=== PATIENT | female | born 1980 | race Caucasian/White ===

== ENCOUNTER 2017-09-03 13:20 | Emergency (ER) | payer BC, OTHER ==
[2017-09-03] MEDS ORDERED: NORMAL SALINE 1000 ML 1,000 ML IV ONE (13:57)
[2017-09-03] MEDS ORDERED: ONDANSETRON HCL INJ/PF 4 MG/2 ML SDV IV ONE (13:58)
--- NOTE | 2017-09-03 14:00 | ER Document Report ---
ED Medical Screen (RME) - General Chief Complaint: Vomiting Stated Complaint: VOMITING Time Seen by Provider: 09/03/17 13:57 Mode of Arrival: Wheelchair Information source: Patient TRAVEL OUTSIDE OF THE [place] IN LAST 30 DAYS: No - HPI Patient complains to provider of: vomiting Onset: This morning - pt states she has had multiple episodes of emesis since earlier this am; min abd pain, no diarrhea - Related Data Allergies/Adverse Reactions: Penicillins Adverse Reaction (Severe, Verified 09/03/17 13:20) RASH adhesive [Adhesive] Adverse Reaction (Mild, Verified 09/03/17 13:20) RASH Past Medical History - Social History Chew tobacco use (# tins/day): No Frequency of alcohol use: Occasional Drug Abuse: None - Past Medical History Cardiac Medical History: Denies: Hx Coronary Artery Disease, Hx Heart Attack, Hx Hypertension Pulmonary Medical History: Reports: Hx Asthma - A CHILD Denies: Hx Bronchitis, Hx COPD, Hx Pneumonia Neurological Medical History: Denies: Hx Cerebrovascular Accident, Hx Seizures Renal/ Medical History: Denies: Hx Kidney Stones, Hx Ovarian Cysts, Hx Peritoneal Dialysis, Hx Pelvic Inflammatory Disease Malignancy Medical History: Denies: Hx Breast Cancer, Hx Cervical Cancer, Hx Ovarian Cancer GI Medical History: Reports: Hx Gastroesophageal Reflux Disease - AT NIGHT, Hx Hiatal Hernia. Denies: Hx Ulcer Musculoskeltal Medical History: Denies Hx Arthritis Past Surgical History: Reports: Hx Abdominal Surgery - hernia, Hx Breast Surgery - augmentation, Hx Section - x2, Hx Tonsillectomy, Hx Tubal Ligation - Immunizations Hx Diphtheria, Pertussis, Tetanus Vaccination: - UNKNOWN Physical Exam - Vital signs Vitals: Temp Pulse Resp BP Pulse Ox 97.4 F 82 16 129/89 H 99 09/03/17 13:31 09/03/17 13:31 09/03/17 13:31 09/03/17 13:31 09/03/17 13:31 Course - Vital Signs Vital signs: Temp Pulse Resp BP Pulse Ox 97.4 F 82 16 129/89 H 99 09/03/17 13:31 09/03/17 13:31 09/03/17 13:31 09/03/17 13:31 09/03/17 13:31
[2017-09-03 15:02] LABS: ABSOLUTE BASOPHILS # (AUTO) 0.1 10^3/uL (0.0-0.2); ABSOLUTE LYMPHOCYTES (AUTO) 0.8 10^3/uL (0.5-4.7); ABSOLUTE MONOCYTES (AUTO) 0.2 10^3/uL (0.1-1.4); ABSOLUTE NEUT (AUTO) 8.2 10^3/uL (1.7-8.2); BASOPHILS % (AUTO) 0.6 % (0-2); EOSINOPHILS % (AUTO) 0.1 % (0-6); HEMATOCRIT 42.1 % (36.0-47.0); LYMPHOCYTES % (AUTO) 8.6 % (13-45); MEAN CORPUSCULAR HGB CONC 33.2 g/dL (32.0-36.0); MEAN CORPUSCULAR VOLUME 91 fl (80-97); MONOCYTES % (AUTO) 2.5 % (3-13); PLATELET COUNT 235 10^3/uL (150-450); RED BLOOD COUNT 4.65 10^6/uL (3.72-5.28); RED CELL DISTRIBUTION WIDTH 13.3 % (11.5-14.0); SEGMENTED NEUTROPHILS % (AUTO) 88.2 % (42-78); TOTAL CELLS COUNTED % (AUTO) 100 %; WHITE BLOOD COUNT 9.3 10^3/uL (4.0-10.5)
[2017-09-03 15:12] LABS: ALANINE AMINOTRANSFERASE 28 U/L (9-52); ALBUMIN 4.9 g/dL (3.5-5.0); ALKALINE PHOSPHATASE 77 U/L (38-126); ANION GAP 10 (5-19); ASPARTATE AMINO TRANSFERASE 27 U/L (14-36); BILIRUBIN,DIRECT 0.4 mg/dL (0.0-0.4); BILIRUBIN,TOTAL 1.1 mg/dL (0.2-1.3); BLOOD UREA NITROGEN 9 mg/dL (7-20); CALCIUM 9.6 mg/dL (8.4-10.2); CARBON DIOXIDE 29 mmol/L (22-30); CHLORIDE 106 mmol/L (98-107); GLUCOSE 95 mg/dL (75-110); POTASSIUM 4.3 mmol/L (3.6-5.0); SODIUM 145.2 mmol/L (137-145); TOTAL PROTEIN 7.7 g/dL (6.3-8.2)
[2017-09-03 16:03] LABS: APPEARANCE,URINE SLIGHTLY-CLOUDY; BILIRUBIN,URINE NEGATIVE (NEGATIVE); COLOR,URINE YELLOW; GLUCOSE, URINE NEGATIVE (NEGATIVE); KETONES,URINE 20 mg/dL (NEGATIVE); LEUKOCYTE ESTERASE,URINE NEGATIVE (NEGATIVE); NITRITE,URINE NEGATIVE (NEGATIVE); PROTEIN,URINE NEGATIVE (NEGATIVE); URINE SPECIFIC GRAVITY 1.017; UROBILINOGEN,URINE NEGATIVE mg/dL (<2.0)
--- NOTE | 2017-09-03 16:29 | ER Document Report ---
ED General - General Chief Complaint: Vomiting Stated Complaint: VOMITING Time Seen by Provider: 09/03/17 13:57 Mode of Arrival: Wheelchair TRAVEL OUTSIDE OF THE [place] IN LAST 30 DAYS: No - HPI Notes: 37-year-old female presents today with complaints vomiting approximately 10 hours ago. Sudden onset. 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 No otc medications tried. Denies new travel, foods , medications. Denies hx of gastritis. Pain 09/30. Denies , essential. Was 1 week ago. Patient states she also had a tubal ligation. Denies any diarrhea. Denies any abdominal pain, lightheadedness, dizziness, blurred vision , double vision, loss of vision. Denies any vaginal or pelvic pain. Denies any chest pain or shortness of breath. Was denies fevers and chills. Drinking clear liquids and bland diet. Progressively feeling better. Any rashes. Denies any URI symptoms - Related Data Allergies/Adverse Reactions: Penicillins Adverse Reaction (Severe, Verified 09/03/17 13:20) RASH adhesive [Adhesive] Adverse Reaction (Mild, Verified 09/03/17 13:20) RASH Past Medical History - General Information source: Patient - Social History Smoking Status: Never Smoker Chew tobacco use (# tins/day): No Frequency of alcohol use: Occasional Drug Abuse: None Family History: Reviewed & Not Pertinent Patient has suicidal ideation: No Patient has homicidal ideation: No - Past Medical History Cardiac Medical History: Denies: Hx Coronary Artery Disease, Hx Heart Attack, Hx Hypertension Pulmonary Medical History: Reports: Hx Asthma - A CHILD Denies: Hx Bronchitis, Hx COPD, Hx Pneumonia Neurological Medical History: Denies: Hx Cerebrovascular Accident, Hx Seizures Renal/ Medical History: Denies: Hx Kidney Stones, Hx Ovarian Cysts, Hx Peritoneal Dialysis, Hx Pelvic Inflammatory Disease Malignancy Medical History: Denies: Hx Breast Cancer, Hx Cervical Cancer, Hx Ovarian Cancer GI Medical History: Reports: Hx Gastroesophageal Reflux Disease - AT NIGHT, Hx Hiatal Hernia. Denies: Hx Ulcer Musculoskeltal Medical History: Denies Hx Arthritis Past Surgical History: Reports: Hx Abdominal Surgery - hernia, Hx Breast Surgery - augmentation, Hx Section - x2, Hx Tonsillectomy, Hx Tubal Ligation - Immunizations Hx Diphtheria, Pertussis, Tetanus Vaccination: - UNKNOWN Review of Systems - Review of Systems Constitutional: No symptoms reported EENT: No symptoms reported Cardiovascular: No symptoms reported Respiratory: No symptoms reported Gastrointestinal: See HPI Genitourinary: No symptoms reported Female Genitourinary: No symptoms reported Musculoskeletal: No symptoms reported Skin: No symptoms reported Hematologic/Lymphatic: No symptoms reported Neurological/Psychological: No symptoms reported Physical Exam - Vital signs Vitals: Temp Pulse Resp BP Pulse Ox 97.4 F 82 16 129/89 H 99 09/03/17 13:31 09/03/17 13:31 09/03/17 13:31 09/03/17 13:31 09/03/17 13:31 Interpretation: Normal - Notes Notes: PHYSICAL EXAMINATION: GENERAL: Well-appearing, well-nourished and in no acute distress. HEAD: Atraumatic, normocephalic. EYES: Pupils equal round and reactive to light, extraocular movements intact, conjunctiva are normal. ENT: Nares patent, oropharynx clear without exudates. Moist mucous membranes. NECK: Normal range of motion, supple without lymphadenopathy LUNGS: Breath sounds clear to auscultation bilaterally and equal. No wheezes rales or rhonchi. HEART: Regular rate and rhythm without murmurs ABDOMEN: Soft, nontender, nondistended abdomen. No guarding, no rebound. No masses appreciated. Female : deferred Musculoskeletal: Normal range of motion, no pitting or edema. No cyanosis. NEUROLOGICAL: Cranial nerves grossly intact. Normal speech, normal gait. Normal sensory, motor exams PSYCH: Normal mood, normal affect. SKIN: Warm, Dry, normal turgor, no rashes or lesions noted. Course - Re-evaluation Re-evalutation: discussed with patient that she likely had a viral gastroenteritis. Need rest, increased hydration and follow a bland diet. patient that her laboratory findings were unremarkable, encouraged her to follow a bland diet with clear liquids. Advised her to take Zofran as needed. If symptoms become worse, return to the emergency room. pt verbalized understanding of these instructions and agreed with plan of care. Patient was seen today for abdominal pain. After review of laboratory studies and radiologic studies there are no signs of acute abdomen or other life- threatening ailments. I did consider acute appendicitis, peritonitis, urinary tract infection, cholelithiasis, cholecystitis, abdominal aortic aneurysm, intestinal obstruction, diverticulitis/ diverticulosis and pyelonephritis. At this time I feel the patient is stable for discharge is instructed to follow up with her primary care physician in 2-3 days return to emergency department for worsening symptoms or lack of resolution of symptoms in the next 24-48 hours. - Vital Signs Vital signs: Temp Pulse Resp BP Pulse Ox 97.4 F 82 16 129/89 H 99 09/03/17 13:31 09/03/17 13:31 09/03/17 13:31 09/03/17 13:31 09/03/17 13:31 - Laboratory Result Diagrams: 09/03/17 14:30 09/03/17 14:30 Laboratory results interpreted by me: 09/03/17 09/03/17 09/03/17 14:30 14:30 15:38 Seg Neutrophils % 88.2 H Lymphocytes % 8.6 L Monocytes % 2.5 L Sodium 145.2 H Urine Ketones 20 H Discharge - Discharge Clinical Impression: Viral gastroenteritis Clinical Impression: (Ruled Out): Viral gastritis Condition: Good Disposition: HOME, SELF-CARE Instructions: Gastroenteritis (adult) ([facility]) Additional Instructions: Gastroenteritis You most likely have gastroenteritis. This is an irritation of the stomach and intestinal tract. It's usually caused by a virus, but can also be caused by bacteria, toxins that cause food poisoning, or excessive alcohol intake. Symptoms may include fever, painful abdominal cramps, nausea, vomiting , and diarrhea. Start with small amounts (two to six ounces) of clear liquids (soft drinks , herb teas, broth, etc). Try to take fluids frequently even if you are vomiting, to prevent dehydration. When liquids are being consumed successfully , advance to small amounts of bland food (mashed potato, toast) for 6 - 12 hours. Gastroenteritis rarely requires medication. It goes away by itself. Use good handwashing so you don't spread germs. Wash underwear in very hot water. If symptoms are severe, talk to the doctor. Call your physician if blood appears in your vomitus or stool, if vomiting lasts longer than 24 hours, if the abdominal pain worsens or becomes localized to one area, or if you develop high fever. Return immediately for any new or worsening symptoms. Follow up with primary care provider, call tomorrow to make followup appointment. Forms: Return to Work
[2017-09-03 18:09] VITALS: BP 139/83
== END 2017-09-03 18:10 | disposition home or self-care (01) ==
LOC: ER 13:20
DX: A08.4 Viral intestinal infection, unspecified (principal)
CPT/HCPCS: 99284; 96361; 96374; 36415; 85025; 81025; 80053; 81001; J2405; J7030